=== PATIENT | female | born 1970 | race Caucasian/White ===

== ENCOUNTER 2016-06-24 10:00 | Inpatient (IN) | payer OTHER ==
[~2016-06-24] VITALS: Ht 165.1 cm; Wt 75.5 kg
--- NOTE | ~2016-06-24 | OR ---
PATIENT'S NAME: KATIE NIXON [facility] AGE: 45 Y [address] 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 Menorrhagia. 2. History of failed ablation. POSTOPERATIVE DIAGNOSES: 1. Menorrhagia. 2. History of failed ablation. PROCEDURE PERFORMED: Total abdominal hysterectomy and bilateral salpingo- oophorectomy. ANESTHESIA: General endotracheal and TAP block. BLOOD LOSS: 100 mL. COMPLICATIONS: None. DESCRIPTION OF PROCEDURE: The patient was taken to the operating room and placed under general endotracheal anesthetic. She was prepped and draped, and a Mondragon catheter was placed. Pfannenstiel skin incision, was entered with a knife and taken down to the level of the fascia. The fascia was nicked in the midline, and the incision was carried out laterally. The fascia was sharply and bluntly dissected from the underlying rectus muscles. The peritoneum was opened sharply and incised. [place] retractor was placed, and the patient was tipped in Trendelenburg. Her bowels were held back with wet packing laps and the fourth arm of the Kenji. The bladder blade was placed. The round ligaments were cauterized with the LigaSure. The anterior and posterior leaflets of the broad ligament were opened. The infundibulopelvic ligaments were clamped, cut, and ligated with the LigaSure. The cardinal ligaments were clamped, cut, and ligated with the LigaSure. The bladder reflection was taken down with some difficulty because of her 4 prior sections. This was taken down past the level of the cervix. The LigaSure was then used, and then the straight Hammad clamps were used alongside the cervix. The pedicles were clamped, cut, and ligated with 0 Vicryl. The vagina was entered with a knife, and the cervix was circumscribed from the vagina. Allis were used to hold the vagina. The apex was closed with a stitch of 0 Vicryl. A running locking PATIENT'S NAME: KATIE NIXON [facility] AGE: 45 Y [address] ROOM: [place] [id number] LOCATION: GOBS ADMIT DATE: 07/02/2016 OR/Procedure Report DISCHARGE DATE: 07/04/2016 FAMILY PHYSICIAN: Lyndsay Ewing PA-C ATTENDING PHYSICIAN: Arabella Harrison stitch was taken out from each apex to run across the top of the vagina, to be tied in the midline. The pelvis was irrigated. The ureters were found to be peristalsing bilaterally and should be below the level of dissection as long as they follow a normal course. The bowel looked normal. The retractors were removed. There was no active bleeding. Wet packing laps were removed. Sponge, needle, and instrument counts were correct. The peritoneum was closed with 2-0 Vicryl, 0 Vicryl was used to close the fascia, and 4-0 Vicryl was used to close the skin. The patient tolerated the procedure well and went to Recovery in stable condition. MD SANTIAGO GAMBLE/zully /[id number] d: 07/09/16 1145 t: 07/19/16 0857, OPERATIVE SUMMARY
--- NOTE | ~2016-06-24 | DS ---
PATIENT'S NAME: KATIE NIXON [facility] AGE: 45 Y [address] ROOM: [facility] [place], [place] [address] LOCATION: GOBS ADMIT DATE: 07/02/2016 Discharge Summary DISCHARGE DATE: 07/04/2016 FAMILY PHYSICIAN: Lyndsay Ewing PA-C ATTENDING PHYSICIAN: Arabella Harrison DISCHARGE DIAGNOSES: 1. Menorrhagia. 2. Failed endometrial ablation. PROCEDURES: Total abdominal hysterectomy and bilateral salpingo-oophorectomy. REASON FOR ADMISSION: Please see full hospital H and P. This is a the patient who had an endometrial ablation, but continues to have menorrhagia. She presents for NEGRO/BSO. She has had 4 sections. HOSPITAL COURSE: The patient had a NEGRO/BSO performed without any difficulty. On postop day #1, the patient was doing well. Her hemoglobin was stable. 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 On postop day #2, she was voiding well, she was ambulating well, and desired discharge to home. She was discharged with Percocet and Motrin for pain and will follow up with Dr. Harrison in 2 and 6 weeks' time. MD SANTIAGO GAMBLE/modl /[id number] d: 07/10/16 0123 t: 07/19/16 0859, DISCHARGE SUMMARY
[~2016-06-24 10:00] MED LIST: ACIDOPHILUS1 EAC2 PO
[2016-07-02 10:31] LABS: BASOPHIL % 0.7 %; EOSINOPHIL # 0.1 K/uL (0.0-0.5); EOSINOPHIL % 2.6 %; HEMATOCRIT 41.6 % (33.0-46.0); HEMOGLOBIN 13.5 g/dL (10.0-15.0); IMMATURE GRANULOCYTE % 0.2 %; LYMPHOCYTE % 23.2 %; MCH 30.1 pg (27.0-34.0); MCHC 32.5 gm/dL (32.0-36.5); MCV 92.7 fl (83.0-98.0); MONOCYTE # 0.5 K/uL (0.0-1.0); MONOCYTE % 12.6 %; MPV 9.9 fl (9.4-12.4); NEUTROPHIL # (ANC) 2.6 K/uL (1.8-7.8); NEUTROPHIL % 60.7 %; NRBC % 0 /100WBC (0-0.00); PLATELET COUNT 189 K/uL (150-450); RBC 4.49 M/uL (3.50-5.50); WBC 4.3 K/uL (4.0-11.0)
[2016-07-03 04:47] LABS: BASOPHIL % 0.1 %; EOSINOPHIL % 0.1 %; HEMOGLOBIN 10.4 g/dL (10.0-15.0); IMMATURE GRANULOCYTE % 0.4 %; LYMPHOCYTE # 0.9 K/uL (0.8-4.0); MCH 29.9 pg (27.0-34.0); MCHC 32.2 gm/dL (32.0-36.5); MCV 92.8 fl (83.0-98.0); MONOCYTE % 10.2 %; MPV 9.7 fl (9.4-12.4); NEUTROPHIL # (ANC) 7.9 K/uL (1.8-7.8); NEUTROPHIL % 80.2 %; NRBC % 0 /100WBC (0-0.00); PLATELET COUNT 166 K/uL (150-450); RBC 3.48 M/uL (3.50-5.50); RDW-CV 12.9 % (11.9-14.6); WBC 9.9 K/uL (4.0-11.0)
[2016-07-03 04:48] LABS: HEMATOCRIT 32.3 % (33.0-46.0)
--- NOTE | 2016-07-03 05:55 | NUR ---
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 PUSHED 5 TIMES THROUGHOUT THE NIGHT. MITCHELL DRAINING CLEAR YELLOW URINE. PT HAS ABDOMINAL DRESSING INTACT. SHADOWING PRESENT ON DRESSING. PT LIKES ICE TO INCISION. ANCEF DUE AT 1100. TORADOL LAST GIVEN AT 0000. PT HAS MOTRIN AND PERCOCET AVAILABLE NOW. PT ON 2L OF .
--- NOTE | 2016-07-03 17:29 | NUR ---
Last VS: T:97.8 P:83 R: 14 BP: 100/61 Pain rating: . Last pain med: 2 percocets at 0735, 1200 and 1613 and 800 mg Motrin at 0830 and 1630 Voiding well: simms out at 0830 this am and has been up to the bathroom and has voided several times without difficulty Significant event: . last ancef at 1200. Has showered and been in the hallway several times today.Incision cleand dry with sutures and strips intact.
--- NOTE | 2016-07-04 05:06 | NUR ---
Significant Event: pt up in halls frequently Follow up: PT HAD GOOD NIGHT, TAKING PERCOCET EVERY 4 HRS, MOTRIN EVERY 8. STERISTRIPS IN PLACE. POSSIBLE DISMISSAL.
[2016-07-04] MEDS ORDERED: PERCOCET 5-3251 EACH PO (10:17)
[2016-07-04] MEDS ORDERED: MOTRIN800 MG PO (10:17)
== END 2016-07-04 11:35 | disposition disaster alternative care site (69) | DRG 743 ==
LOC: GOBS 07-02 09:57 → GMSU 07-02 09:57 → GOBS 07-02 15:10
PROVIDERS: ADMIT Obstetrics & Gynecology
DX: N92.0 Excessive and frequent menstruation with regular cycle (principal)
CPT/HCPCS: J0131; J0690; J1885; J2270; J2550; J3010; J7030; J7050